=== PATIENT | male | born 1985 | race Caucasian/White ===

== ENCOUNTER 2019-02-17 12:24 | Emergency (ER) | payer SELFPAY ==
[2019-02-17 12:34] VITALS: BP 149/81
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
== END 2019-02-17 13:46 | disposition home or self-care (01) ==
LOC: UCEAST 12:24
DX: M23.92 Unspecified internal derangement of left knee (principal)
CPT/HCPCS: 99211; G0463